=== PATIENT | male | born 1965 | race Caucasian/White ===

== ENCOUNTER 2016-06-06 08:27 | Day surgery (SDC) | payer OTHER ==
[~2016-06-06] VITALS: Ht 170.2 cm; Wt 99.8 kg
[2016-06-06] MEDS ORDERED: NORCO 5-325 (09:28)
[2016-06-06] MEDS ORDERED: HUMALOG (09:28)
[2016-06-06] MEDS ORDERED: OMEPRAZOLE (09:28)
[2016-06-06] MEDS ORDERED: TRAMADOL (09:28)
[2016-06-06 09:34] VITALS: Ht 170.2 cm; Wt 99.8 kg
[2016-06-06 09:55] VITALS: BP 123/65; PULSE 83; RESP 18
[2016-06-06] MEDS ORDERED: LIDOCAINE 4% SOLUTION 50 ML BTL ONE (09:56)
[2016-06-06] MEDS ORDERED: MIDAZOLAM 1 MG/ML 2 ML INJ ONE ×2 (10:35)
[2016-06-06] MEDS ORDERED: FENTAnyl 50 MCG/ML VIAL ONE (10:35)
[2016-06-06 10:55] VITALS: BP 136/67; RESP 20
--- NOTE | 2016-06-06 20:31 | GILP ---
DATE OF PROCEDURE: PROCEDURE: Esophagogastroduodenoscopy. PREOPERATIVE DIAGNOSIS: The patient presenting with history of chronic heartburn unresponsive to ro utine therapy. He also has guaiac positive stools. POSTOPERATIVE DIAGNOSES: 1. Mild reflux esophagitis, Colona classification A. 2. Fundal gastritis of moderate degree. 3. Biopsy was done from the antrum, the lesser curvature, and the fundus to rule out Helicobacter p ylori infection. DESCRIPTION OF PROCEDURE: After the informed written consent was obtained, the patient was asked to lie in the left lateral side. Versed 3 mg, 75 mcg of fentanyl was given as intravenous anesthesia. When the patient became somnolent, Olympus video upper endoscope was introduced into the oropharynx, then into the esophagus. A few areas of erythema noted projecting out of the GE junction, consiste nt with mild reflux esophagitis, Colona classification A. At this time, scope was advanced int o the stomach. Stomach showed evidence of several areas of erythema and friability of the mucosal s urface. Multiple biopsies were obtained from the antrum, the lesser curvature, and the fundus to ru le out H. pylori infection. The duodenum appeared normal up into the third portion. Scope at this time was withdrawn and on the way out no additional abnormalities detected and the procedure was ter minated. PLAN: Recommend proton pump inhibitor therapy, Nexium 40 mg a day for 3 months. Dictated By: EUFEMIA ZAMARRIPA MD NC/NTS Conf#: [id number] DID#: [id number] CC: LOW JAMES MD; EUFEMIA ZAMARRIPA MD;*[facility]*
--- NOTE | 2016-06-06 21:02 | GILP ---
DATE OF PROCEDURE: PROCEDURE: Colonoscopy. PREOPERATIVE DIAGNOSIS: The patient presenting with history of occult gastrointestinal bleeding, ru le out colorectal neoplasm. POSTOPERATIVE DIAGNOSIS: Normal colonoscopy. DESCRIPTION OF PROCEDURE: After the informed written consent was obtained, the patient was asked to lie on the left lateral side. Total 3 mg Versed, 75 mcg of fentanyl was given as intravenous anest hesia. When the patient became somnolent, Olympus video colonoscope was introduced into the rectum, and sco pe was advanced all the way to the cecum. Entire colon appeared perfectly normal with no mucosal ab normality. No polyps noted. No colitis noted. On the way out, no hemorrhoids were noted. At this time scope was withdrawn, and the procedure was terminated. PLAN: Recommend capsule endoscopy to rule out small bowel causes of occult GI bleeding. Dictated By: EUFEMIA SANTIZO/KEATON Conf#: [id number] DID#: [id number] CC: [place];*End[facility]*
== END 2016-06-06 11:23 | disposition home or self-care (01) ==
LOC: GIL 08:27
PROVIDERS: ATTEND Internal Medicine Gastroenterology
DX: Z12.11 Encounter for screening for malignant neoplasm of colon (principal); K21.0 Gastro-esophageal reflux disease with esophagitis; K29.60 Other gastritis without bleeding; E11.9 Type 2 diabetes mellitus without complications
CPT/HCPCS: 43239; 45378; 82962; 88305; 88312; 88313; J2250; J3010; Z7610